=== PATIENT | male | born 1945 | race Caucasian/White ===

== ENCOUNTER 2017-01-20 09:57 | Emergency (ER) | payer MEDICARE, OTHER ==
[~2017-01-20] VITALS: Ht 170 cm; Wt 58.5 kg
[~2017-01-20 09:57] MED LIST: ABILIFY30 MG PO; ACET500CAP PO; AMLACTIN12 % EX; AMMONIUM LAC EX; AMMONIUM LACTATE; BENTYL10 PO; CITRACAL PO; DSS PO; FERROUS SULF325 M1 PO; FINACEA15 % TOP; FLEET MINERL PR; FLOMAX0.4 M1 OR; FLOMAX4 PO; FOSAMAX70 MG PO; GAVISCON6; GAVISCON6 PO; GLUCERNA PO; GLUCPH PO; GOLD BOND TOP; HEAD AND SHOULDERS TOP; IRON325 MG PO; KURIC2 % TOP; LAMIS15 TOP; MELATONIN5 M1 PO; METPAKSF PO; METROLOTION0.75 % TOP; MICRO GUARD2 % TOP; MIRALAXPKT PO; NASACORTAQ NAS; NEUR300 PO; NEXIUM40 PO; OCEAN NAS; PETROLATUM TOP; PETROLEUM JELLY TOP; PREV30 PO; PREVALITE4 G1 PO; PRIN10 PO; PRIN5 PO; PROSCAR5 PO; RANITIDINE300 MG PO; REG PO; SELSUN BLUE3 % EX; SIN25 PO; SUCR PO; TRAZ100 PO; TYLENOL ARTH650 MG PO; VITAMIN D1000 UNI1 PO; VITAMIN D400 UNI1 PO; ZEASORB-AF2 % TOP; [UNRECOGNIZED DRUG - OTHER]; [UNRECOGNIZED DRUG - OTHER] PO; [UNRECOGNIZED DRUG - OTHER] TOP
[2017-01-20 10:42] LABS: BASOPHILS 0.5 %; BASOPHILS ABSOLUTE 0.03 10/3/uL (0.0-0.16); EOSINOPHILS 3.4 %; EOSINOPHILS ABSOLUTE 0.22 10/3/uL (0.0-0.53); HEMATOCRIT 37.3 % (40.0-51.0); IMMATURE GRANULOCYTES 0.2 %; IMMATURE GRANULOCYTES ABSOLUTE 0.01 10/3/uL (0.0-0.11); LYMPHOCYTES 13.9 %; MEAN CORPUS HGB CONC 34.9 g/dL (32.0-36.0); MEAN CORPUSCULAR HEMOGLOB 30.4 pg (26.0-34.0); MEAN CORPUSCULAR VOLUME 87.4 fL (80-100); MEAN PLATELET VOLUME 8.7 fL (9.2-13.0); MONOCYTES 8.5 %; MONOCYTES ABSOLUTE 0.55 10/3/uL (0.21-1.20); NEUTROPHILS 73.5 %; NEUTROPHILS ABSOLUTE 4.76 10/3/uL (2.02-8.40); PLATELET COUNT 132 10/3/uL (150-400); RBC DISTRIBUTION WIDTH 14.3 % (12.0-16.0); RED CELL COUNT 4.27 10/6/uL (4.7-6.1)
[2017-01-20 10:45] LABS: ER CBC TAT 0 Hrs 07 Mins; MANUAL DIFF NO %; WHITE BLOOD CELLS 6.5 10/3/uL (4.5-10.5)
[2017-01-20 10:59] LABS: A/G RATIO 1.1 (0.7-1.9); ALBUMIN 3.6 G/DL (3.5-5.0); ALKALINE PHOSPHATASE 123 U/L (45-117); BUN (BLOOD UREA NITROGEN) 12 MG/DL (6-23); CALCIUM, SERUM 9.1 MG/DL (8.5-10.4); CHLORIDE, SERUM 99 MMOL/L (96-112); CO2 (CARBON DIOXIDE) 32 MMOL/L (24-34); CPK 45 U/L (0-200); CREATININE 0.95 MG/DL (0.70-1.30); GFR AFRICAN AMERICAN 92 ML/MIN (>=60); GFR NON AFRICAN AMERICAN 79 ML/MIN (>=60); GLOBULIN 3.3 G/DL (2.5-4.1); GLUCOSE, SERUM 82 MG/DL (60-99); POTASSIUM, SERUM 3.7 MMOL/L (3.5-5.3); SGOT(AST) 14 U/L (5-40); SGPT(ALT) 12 U/L (5-65); SODIUM, SERUM 136 MMOL/L (135-148); TOTAL BILIRUBIN 0.7 MG/DL (0-1.2); TOTAL PROTEIN 6.9 G/DL (6.0-8.5)
[2017-01-20 11:04] LABS: ASCORBIC ACID (UR NOT ORDER) NEG (NEG); BILIRUBIN, URINE NEGATIVE (NEG); ER URINALYSIS TAT 0 Hrs 09 Mins; KETONE, URINE NEGATIVE (NEG); LEUKOCYTE ESTERASE(NOT OR NEG (NEG); NITRITE (URINE) NEG (NEG); WBC (NOT ORDERED) (RFLEX) 4 (0-5)
== END 2017-01-20 13:05 | disposition home or self-care (01) ==
LOC: ER 09:57
PROVIDERS: Hospitalist
DX: R53.1 Weakness (principal); Z88.0 Allergy status to penicillin; Z88.2 Allergy status to sulfonamides; Z91.018 Allergy to other foods; Z79.899 Other long term (current) drug therapy
CPT/HCPCS: 71010; 80053; 81001; 82550; 85025; 93005; 99285